=== PATIENT | female | born 1975 | race Two or more races ===

== ENCOUNTER 2023-02-24 00:01 | Inpatient (IN) | payer OTHER, MEDICAID ==
[2023-02-24] MEDS ORDERED: Bupivacaine 0.5%/EPINEPHrine 1:200,000 50 ML MDV ONE (07:07)
[2023-02-24] MEDS ORDERED: Rocuronium 50 MG/5 ML Vial ONE (07:11)
[2023-02-24] MEDS ORDERED: Succinylcholine 200 MG/10 ML MDV ONE (07:11)
[2023-02-24] MEDS ORDERED: Glycopyrrolate 0.2 MG/ML 5 ML MDV ONE (07:11)
[2023-02-24] MEDS ORDERED: Ondansetron 4 MG/2 ML SDV ONE (07:11)
[2023-02-24] MEDS ORDERED: Dexamethasone 4 MG/ML SDV ONE (07:11)
[2023-02-24] MEDS ORDERED: Neostigmine Methylsulfate 1 MG/ML 5 ML Syringe ONE (07:11)
[2023-02-24] MEDS ORDERED: fentaNYL 250 MCG/5 ML SDV ONE (07:11)
[2023-02-24] MEDS ORDERED: Propofol 200 MG/20 ML SDV ONE (07:11)
[2023-02-24] MEDS ORDERED: Acetaminophen 500 MG Tab PO ONE (07:30)
[2023-02-24] MEDS ORDERED: Gabapentin 300 MG Cap PO ONE (07:30)
[2023-02-24] MEDS ORDERED: cefTRIAXone 2 GM in Sodium Chloride 0.9% 50 ML IV ONE (07:30)
[2023-02-24] MEDS ORDERED: metroNIDAZOLE/Normal Saline 500 MG in Premix Bag 1 BAG IV ONE (07:30)
[2023-02-24] MEDS ORDERED: Scopolamine 1.5 MG Transdermal Patch TOP ONE (07:30)
[2023-02-24] MEDS ORDERED: Enoxaparin 40 MG/0.4 ML Syringe SUBCUT ONE (07:30)
[2023-02-24] MEDS ORDERED: Sodium Chloride 0.9% 1,000 ML IV SCH (07:30)
[2023-02-24 07:48] LABS: HEMATOCRIT 42.6 % (34.3-46.0); HEMOGLOBIN 14.4 g/dL (11.2-15.5); MEAN CORPUSCULAR HEMOGLOBIN 28.5 pg (31.6-35.5); MEAN CORPUSCULAR HGB CONC 33.8 g/dL (31.6-35.5); MEAN CORPUSCULAR VOLUME 84.2 fL (81.4-99.0); RED BLOOD CELL COUNT 5.06 M/uL (3.77-5.24); WHITE BLOOD CELL COUNT,WBC 8.1 K/uL (3.2-11.0)
[2023-02-24 07:54] LABS: INR 0.9; PROTHROMBIN TIME 9.3 sec (9.2-10.6)
[2023-02-24 07:59] LABS: ALANINE AMINOTRANSFERASE,ALT 22 U/L (12-78); ALBUMIN 3.9 g/dL (3.4-5.0); ALKALINE PHOSPHATASE 110 U/L (46-116); ANION GAP 13.6 mmol/L (5.0-14.0); ASPARTATE AMNIOTRANSFERASE,AST 21 U/L (15-37); BILIRUBIN TOTAL 0.6 mg/dL (0.2-1.0); BLOOD UREA NITROGEN,BUN 13 mg/dL (7-18); CALCIUM 8.9 mg/dL (8.5-10.1); CARBON DIOXIDE,CO2 27 mmol/L (21-32); CHLORIDE,CL 101 mmol/L (100-108); CREATININE 0.9 mg/dL (0.6-1.0); EST CRCL DRUG DOSING (CG) 62.43 mL/min; ESTIMATED GFR 80 mL/min (>60); GLUCOSE RANDOM 97 mg/dL (74-106); POTASSIUM,K 3.6 mmol/L (3.6-5.2); PROTEIN TOTAL,TP 7.7 g/dL (6.4-8.2); SODIUM,NA 138 mmol/L (140-148)
[2023-02-24] MEDS ORDERED: Ketamine 500 MG/5 ML MDV IV SCH (08:30)
[2023-02-24] MEDS ORDERED: Atropine 0.4 MG/ML SDV ONE (09:59)
[2023-02-24] MEDS ORDERED: Lactated Ringers 1,000 ML ONE (11:17)
[2023-02-24] MEDS ORDERED: fentaNYL 100 MCG/2 ML SDV ONE (11:48)
[2023-02-24] MEDS ORDERED: Ondansetron 4 MG/2 ML SDV IVPUSH PRN (11:59)
[2023-02-24] MEDS ORDERED: hydrALAZINE 20 MG/ML SDV IVPUSH PRN (12:45)
[2023-02-24] MEDS: Dextrose 5%-Lactated Ringers 1,000 ML IV SCH ×2 (13:58→23:10)
[2023-02-24] MEDS: Acetaminophen 1,000 MG in Premix Bag 1 BAG IV SCH ×2 (14:08→19:36)
[2023-02-24] MEDS: VERIFY SCOP PATCH SCH ×2 (16:26→16:27)
[2023-02-24] MEDS: Tamsulosin 0.4 MG Cap.ER PO SCH (20:20)
[2023-02-24] MEDS: Gabapentin 300 MG Cap PO SCH (20:20)
[2023-02-25] MEDS: Acetaminophen 1,000 MG in Premix Bag 1 BAG IV SCH ×3 (03:04→13:34)
[2023-02-25 05:56] LABS: HEMATOCRIT 35.4 % (34.3-46.0); HEMOGLOBIN 11.8 g/dL (11.2-15.5); MEAN CORPUSCULAR HEMOGLOBIN 28.3 pg (31.6-35.5); MEAN CORPUSCULAR HGB CONC 33.3 g/dL (31.6-35.5); MEAN CORPUSCULAR VOLUME 84.9 fL (81.4-99.0); RED BLOOD CELL COUNT 4.17 M/uL (3.77-5.24); WHITE BLOOD CELL COUNT,WBC 8.9 K/uL (3.2-11.0)
[2023-02-25 06:16] LABS: A/G RATIO 0.9 (1.2-2.2); ALANINE AMINOTRANSFERASE,ALT 161 U/L (12-78); ALBUMIN 2.9 g/dL (3.4-5.0); ALKALINE PHOSPHATASE 83 U/L (46-116); ANION GAP 11.4 mmol/L (5.0-14.0); ASPARTATE AMNIOTRANSFERASE,AST 183 U/L (15-37); BILIRUBIN TOTAL 0.5 mg/dL (0.2-1.0); BLOOD UREA NITROGEN,BUN 9 mg/dL (7-18); CARBON DIOXIDE,CO2 27 mmol/L (21-32); CHLORIDE,CL 106 mmol/L (100-108); CREATININE 0.9 mg/dL (0.6-1.0); EST CRCL DRUG DOSING (CG) 62.43 mL/min; ESTIMATED GFR 80 mL/min (>60); GLUCOSE RANDOM 111 mg/dL (74-106); MAGNESIUM 1.9 mg/dL (1.8-2.4); POTASSIUM,K 3.4 mmol/L (3.6-5.2); PROTEIN TOTAL,TP 6.1 g/dL (6.4-8.2); SODIUM,NA 141 mmol/L (140-148)
[2023-02-25] MEDS ORDERED: Potassium Chloride 10 MEQ in Premix Bag 1 BAG IV SCH (07:00)
[2023-02-25] MEDS: Potassium Chloride 10 MEQ in Premix Bag 1 BAG IV SCH ×3 (07:17→09:06)
[2023-02-25] MEDS: Dextrose 5%-Lactated Ringers 1,000 ML IV SCH (07:20)
[2023-02-25] MEDS: Gabapentin 300 MG Cap PO SCH ×2 (08:14→20:01)
[2023-02-25] MEDS: Hydrochlorothiazide 12.5 MG Cap PO SCH (08:14)
[2023-02-25] MEDS: Sertraline 50 MG Tab PO SCH (08:14)
[2023-02-25] MEDS: Lisinopril 10 MG Tab PO SCH (08:15)
[2023-02-25] MEDS: VERIFY SCOP PATCH SCH (08:17)
[2023-02-25] MEDS ORDERED: Non-Formulary Medication 1 Each (Sertraline [Zoloft] 100 MG Tablet) PO SCH (09:00)
[2023-02-25] MEDS ORDERED: Pantoprazole 40 MG Vial IVPUSH SCH (09:00)
[2023-02-25] MEDS: Enoxaparin 30 MG/0.3 ML Syringe SUBCUT SCH (15:52)
[2023-02-25] MEDS: Tamsulosin 0.4 MG Cap.ER PO SCH (20:01)
[2023-02-26 04:20] LABS: HEMATOCRIT 36.4 % (34.3-46.0); MEAN CORPUSCULAR HEMOGLOBIN 28.2 pg (31.6-35.5); MEAN CORPUSCULAR VOLUME 85.6 fL (81.4-99.0); RED BLOOD CELL COUNT 4.25 M/uL (3.77-5.24); WHITE BLOOD CELL COUNT,WBC 7.2 K/uL (3.2-11.0)
[2023-02-26 04:46] LABS: MAGNESIUM 1.9 mg/dL (1.8-2.4); PHOSPHORUS 3.7 mg/dL (2.5-4.9)
[2023-02-26] MEDS: Enoxaparin 30 MG/0.3 ML Syringe SUBCUT SCH (05:18)
[2023-02-26 06:42] LABS: CALCIUM 8.3 mg/dL (8.5-10.1); CREATININE 0.8 mg/dL (0.6-1.0); EST CRCL DRUG DOSING (CG) 70.24 mL/min
[2023-02-26] MEDS ORDERED: Acetaminophen 500 MG Tab PO SCH (08:00)
[2023-02-26] MEDS: Sertraline 50 MG Tab PO SCH (08:07)
[2023-02-26] MEDS: Gabapentin 300 MG Cap PO SCH (08:08)
[2023-02-26] MEDS: Hydrochlorothiazide 12.5 MG Cap PO SCH (08:08)
[2023-02-26] MEDS: Lisinopril 10 MG Tab PO SCH (08:08)
[2023-02-26] MEDS: VERIFY SCOP PATCH SCH (08:09)
[2023-02-27] MEDS ORDERED: Scopolamine 1.5 MG Transdermal Patch TRDERM PRN (07:00)
== END 2023-02-26 10:26 | disposition home or self-care (01) | DRG 620 ==
LOC: JP.SDSSCHI 07:02 → JP.MS 11:59
PROVIDERS: ADMIT Student in an Organized Health Care Education/Training Program; ATTEND Student in an Organized Health Care Education/Training Program
PROC: 8E0W4CZ Robotic Assisted Procedure of Trunk Region, Percutaneous Endoscopic Approach (ICD-10-PCS; 2023-02-24)
PROC: 0DB64Z3 Excision of Stomach, Percutaneous Endoscopic Approach, Vertical (ICD-10-PCS; principal; 2023-02-24 08:30)
DX: E66.01 Morbid (severe) obesity due to excess calories (principal); F33.1 Major depressive disorder, recurrent, moderate; I10 Essential (primary) hypertension; G47.33 Obstructive sleep apnea (adult) (pediatric); M54.6 Pain in thoracic spine; G89.29 Other chronic pain; F41.1 Generalized anxiety disorder; E03.9 Hypothyroidism, unspecified; R33.9 Retention of urine, unspecified; E28.2 Polycystic ovarian syndrome; E87.6 Hypokalemia; Z68.38 Body mass index [BMI] 38.0-38.9, adult; Z85.038 Personal history of other malignant neoplasm of large intestine; Z87.891 Personal history of nicotine dependence; Z98.890 Other specified postprocedural states; Z90.49 Acquired absence of other specified parts of digestive tract; Z90.89 Acquired absence of other organs; Z88.0 Allergy status to penicillin
CPT/HCPCS: 36415; 51701; 80048; 80053; 81025; 82947; 83735; 84100; 85018; 85027; 85610; 86850; 86900; 86901; 88307; A9270-GY; C9113; J0131; J0330; J0360; J0461; J0696; J1100; J1650; J2405; J2704; J2710; J3010; J3480; J3490; J7030; J7120; J7121